=== PATIENT | female | born 2000 | race Two or more races ===

== ENCOUNTER 2024-01-02 14:35 | Outpatient (CLI) | payer OTHER | END 2024-01-02 14:36 | disposition home or self-care (01) | LOC: PRENATAL 14:35 | PROVIDERS: ATTEND Obstetrics & Gynecology Maternal & Fetal Medicine | DX: O36.80X0 Pregnancy with inconclusive fetal viability, not applicable or unspecified (principal); Z36.82 Encounter for antenatal screening for nuchal translucency; O34.219 Maternal care for unspecified type scar from previous cesarean delivery; Z3A.14 14 weeks gestation of pregnancy ==

== ENCOUNTER 2024-05-07 15:43 | Outpatient (CLI) | payer OTHER | END 2024-05-07 15:44 | disposition home or self-care (01) | LOC: PRENATAL 15:43 | PROVIDERS: ATTEND Obstetrics & Gynecology Maternal & Fetal Medicine | DX: O26.843 Uterine size-date discrepancy, third trimester (principal); O36.8130 Decreased fetal movements, third trimester, not applicable or unspecified; O34.219 Maternal care for unspecified type scar from previous cesarean delivery; O99.013 Anemia complicating pregnancy, third trimester; D64.9 Anemia, unspecified; Z3A.32 32 weeks gestation of pregnancy ==

== ENCOUNTER 2024-06-21 07:54 | Inpatient (IN) | payer OTHER ==
[2024-06-12 09:34] LABS: HEMATOCRIT 34.8 % (36.0-45.00); HEMOGLOBIN 11.4 g/dL (12.0-15.00); MEAN CELL VOLUME 79.3 fL (80.00-100.00); MEAN CORPUSCULAR HEMOGLOBIN 25.9 pg (27.00-32.0); MEAN CORPUSCULAR HGB CONC 32.6 g/dl (32.0-36.0); PLATELET COUNT 370 K/uL (150-450); RED CELL DISTRIBUTION WIDTH 15.1 % (11.5-14.5)
[2024-06-12 09:44] LABS: PH,URINE 6.5 (5.0-8.0); URINE APPEARANCE Cloudy; URINE BILIRRUBIN Negative (NEGATIVE); URINE BLOOD Negative; URINE COLOR Yellow; URINE GLUCOSE Negative (NEGATIVE); URINE KETONE Negative (NEGATIVE); URINE LEUKOCYTE Large; URINE NITRATE Negative; URINE PROTEIN Trace (NEGATIVE)
[2024-06-12 09:50] LABS: URINE RBC 22.4 uL (0.0-20.8); URINE WBC 469.3 uL (0.0-23.2)
[2024-06-12 10:15] LABS: URINE BACTERIA > 9821.5 uL (0.0-1933); URINE CAST 0.61 uL (0.0-1.40); URINE EPITHELIAL CELLS > 201.7 uL (0.0-38.8); URINE MUCUS SCANT
[2024-06-12 10:22] LABS: INR < 0.93; PARTIAL THROMBOPLASTIN TIME 30.7 SECONDS (22.0-34.0); PROTHROMBIN TIME 10.1 SECONDS (9.0-11.5)
[2024-06-12 10:43] LABS: ALBUMIN 2.8 gm/dL (3.4-5.0); BILIRUBIN TOTAL 0.43 mg/dL (0.3-1.2); CALCIUM 9.6 mg/dL (8.5-10.1); CREATININE SERUM 0.44 mg/dL (0.55-1.02); GFR 177.2; GLOBULINA 3.9 G/DL (2.4-3.5); POTASSIUM 4.12 mEq/L (3.5-5.1); TOTAL PROTEIN 6.7 gm/dL (6.4-8.2)
[~2024-06-21] VITALS: Ht 175.3 cm; Wt 3.2 kg
[2024-06-21] MEDS ORDERED: PRENATAL + DHA1 EAC1 PO (08:25)
[2024-06-21 08:27] VITALS: BP 111/71
[2024-06-21] MEDS ORDERED: OXYTOCIN 10 UNITS/ML VIAL ONE ×2 (12:53→18:35)
[2024-06-21] MEDS ORDERED: ERYTHROMYCIN BASE 1 GM TUBE OP ONE (12:54)
[2024-06-21] MEDS ORDERED: CEFAZOLIN SODIUM 1,000 MG VIAL ONE (13:06)
[2024-06-21] MEDS ORDERED: MORPHINE SULFATE 4 MG/ML CARTRIDGE IV PRN (14:30)
[2024-06-21 14:34] LABS: ABG PH 7.153 (7.35-7.45); ABG pCO2 72.7 mmHg (35-45)
[2024-06-21 14:35] LABS: ABG PO2 15.7 mmHg (80-100); BASE EXCESS -5.6 mmol/l; BICARBONATE 24.9 mmol/l (23-25); SaO2 12.5 %; Tco2 27.2 mmol/l
[2024-06-21] MEDS ORDERED: OXYTOCIN 1,000 ML IV SCH (14:45)
[2024-06-21] MEDS ORDERED: RINGERS SOLUTION,LACTATED 1,000 ML IV SCH (14:45)
[2024-06-21] MEDS ORDERED: MORPHINE SULFATE 4 MG/ML VIAL IV ONE (16:00)
[2024-06-21] MEDS ORDERED: DOCUSATE SODIUM 100MG CAP PO SCH (17:00)
[2024-06-21] MEDS ORDERED: SIMETHICONE 125 MG CAPSULE PO SCH (18:00)
[2024-06-21] MEDS ORDERED: SIMETHICONE 125 MG CAPSULE PO ONE (18:23)
[2024-06-21 18:36] LABS: HEMATOCRIT 36.3 % (36.0-45.00); HEMOGLOBIN 11.8 g/dL (12.0-15.00); MEAN CELL VOLUME 80.6 fL (80.00-100.00); MEAN CORPUSCULAR HEMOGLOBIN 26.2 pg (27.00-32.0); MEAN CORPUSCULAR HGB CONC 32.6 g/dl (32.0-36.0); PLATELET COUNT 357 K/uL (150-450); RED BLOOD COUNT 4.51 M/uL (4.00-6.00)
[2024-06-21 19:09] VITALS: BP 118/76
[2024-06-21] MEDS ORDERED: KETOROLAC TROMETHAMINE 30 MG VIAL IM ONE (20:00)
[2024-06-22 01:17] VITALS: BP 110/68
[2024-06-22] MEDS ORDERED: IBUprofen 800 MG TABLET PO PRN (09:00)
[2024-06-22 14:34] VITALS: BP 116/76
[2024-06-22 16:00] VITALS: BP 120/82
[2024-06-22] MEDS ORDERED: OxyCODONE HCL/APAP UD (PERCOCET) PO PRN (20:45)
[2024-06-23 01:00] VITALS: BP 112/77
[2024-06-23 08:25] VITALS: BP 127/88
[2024-06-23 16:00] VITALS: BP 121/78
[2024-06-23 20:00] VITALS: BP 115/77
[2024-06-24] VITALS: BP 1246/76
[2024-06-24 09:08] VITALS: BP 103/69
== END 2024-06-24 09:16 | disposition home or self-care (01) | DRG 788 ==
LOC: O/R 07:54 → OB/GYN 15:05
PROVIDERS: ADMIT Obstetrics & Gynecology; ATTEND Obstetrics & Gynecology
PROC: 4A1HXCZ Monitoring of Products of Conception, Cardiac Rate, External Approach (ICD-10-PCS; 2024-06-21)
PROC: 10D00Z1 Extraction of Products of Conception, Low, Open Approach (ICD-10-PCS; principal; 2024-06-21 15:30)
DX: O34.211 Maternal care for low transverse scar from previous cesarean delivery (principal); Z3A.39 39 weeks gestation of pregnancy; Z37.0 Single live birth; Z20.822 Contact with and (suspected) exposure to COVID-19